=== PATIENT | male | born 1960 | race Caucasian/White ===

== ENCOUNTER 2024-10-06 06:45 | Inpatient (IN) ==
[2024-10-06 08:24] LABS: Hematocrit 19.1 % (38-53); Hemoglobin 6.4 g/dL (13.2-16.3); Mean Corpuscular Hemoglobin 29.7 pg (27-33); Mean Corpuscular Hgb Conc 33.6 g/dL (31-36); Mean Corpuscular Volume 88.4 fL (80-97); Mean Platelet Volume 8.9 fL (7.5-11.2); Platelet Count 170 10^3/uL (150-450); Red Blood Count 2.16 10^6/uL (4.06-5.63); Red Cell Distribution Width 14.4 % (12-17); White Blood Count 14.6 10^3/uL (3.6-10.2)
[2024-10-06 09:02] LABS: ABS Basophils 0.2 10^3/uL (0.0-0.1); ABS Eosinophils 0.1 10^3/uL (0.0-0.5); ABS Monocytes 1.7 10^3/uL (0.0-1.1); ABS Neutrophils 10.5 10^3/uL (1.5-7.6); ABS Nucleated RBC 0.07 10^3/ul; Acanthocytes 1+; Eosinophil % 0.9 %; Howell Jolly Bodies Present; Hypochromasia 1+; Lymphocyte % 13.8 %; Nucleated Red Blood Cells % 0.5 %/100WBC (0.0-0.8)
[2024-10-06 09:21] LABS: Albumin 3.5 g/dL (3.5-5.7); Albumin/Globulin Ratio 1.7 (1-3); C Reactive Protein 1.78 mg/L (<8.01); Calcium 8.8 mg/dL (8.6-10.3); Creatinine, Serum 1.44 mg/dL (0.67-1.17); Globulin 2.1 g/dL (2-4); Potassium 4.6 mmol/L (3.5-5.0); Total Bilirubin 0.3 mg/dL (0.2-1.0); Total Protein 5.6 g/dL (6.4-8.9); eGFR CKD-EPI 54.3 (>60)
[2024-10-06] MEDS: Pantoprazole VIAL 40 MG VIAL IV ONE (09:32)
[2024-10-06] MEDS: Famotidine IV 10 MG/ML 2 ml VIAL (20 mg) IV SLOW PU ONE ×2 (09:32→21:04)
[2024-10-06 09:35] LABS: INR 1.01 (0.85-1.14)
[2024-10-06 09:42] LABS: High Sensitivity Troponin 1 Hr 847 pg/mL (<20)
[2024-10-06] MEDS: Pantoprazole 80 mg in NS BAG 80 MG/100 ML BAG IV SCH ×2 (09:58→21:04)
[2024-10-06 12:06] LABS: Ferritin 88.6 ng/mL (24-336)
[2024-10-06 12:10] LABS: Hematocrit 21.7 % (38-53); Hemoglobin 7.4 g/dL (13.2-16.3)
[2024-10-06 12:40] LABS: High Sensitivity Troponin 3 Hr 1675 pg/mL (<20)
[2024-10-06] MEDS ORDERED: Sulfur Hexaflouride MICROSPHR 25 MG VIAL IV PRN (13:41)
[2024-10-06] MEDS ORDERED: Propofol 10 MG/ML 20 ML BTL ONE ×2 (15:20)
[2024-10-06] MEDS ORDERED: Lidocaine 2% PF 5 ML VIAL ONE (15:20)
[2024-10-06] MEDS ORDERED: fentaNYL 100 mcg/2 ml 50 MCG/ML VIAL ONE (15:22)
[2024-10-06] MEDS ORDERED: fentaNYL 100 mcg/2 ml 50 MCG/ML VIAL IV PRN (15:26)
[2024-10-06] MEDS ORDERED: Ondansetron 4 mg VIAL 2 MG/ML 2 ml VIAL IV PRN (15:26)
[2024-10-06] MEDS ORDERED: Naloxone 0.4 mg VIAL 0.4 mg/ml 1 ml VIAL IV PRN (15:26)
[2024-10-06] MEDS ORDERED: EPINEPHrine SYR 0.1MG/ML 10 ml SYRINGE IV ONE (16:57)
[2024-10-06] MEDS: Ondansetron 4 mg VIAL 2 MG/ML 2 ml VIAL IV ONE (17:41)
[2024-10-06] MEDS: Buffered Lidocaine 1% SYRIN 1 ml INTRADERM ONE (17:41)
[2024-10-06] MEDS: Acetaminophen IV 1 GM/100ML 1,000 MG/100 ML BAG IV ONE (17:41)
[2024-10-06] MEDS: Lactated Ringers 1000 ml BAG 1,000 ML IV SCH (17:46)
[2024-10-06 18:05] LABS: Hematocrit 24.7 % (38-53); Hemoglobin 8.4 g/dL (13.2-16.3)
[2024-10-06] MEDS: Calcium Carb (TUMS) 500 mg CHEW TAB PO PRN (18:05)
[2024-10-06 19:30] LABS: High Sensitivity Troponin 1 Hr 6559 pg/mL (<20)
[2024-10-06] MEDS: HYDROmorphone 0.5 MG/0.5 ML SYRINGE IV ONE (23:01)
[2024-10-06 23:49] LABS: Hematocrit 23.6 % (38-53); Hemoglobin 7.9 g/dL (13.2-16.3)
[2024-10-07 00:08] LABS: High Sensitivity Troponin 3 Hr 11276 pg/mL (<20)
[2024-10-07] MEDS ORDERED: Ondansetron 4 mg VIAL 2 MG/ML 2 ml VIAL IV PRN (01:10)
[2024-10-07 05:45] LABS: Hematocrit 23.8 % (38-53); Hemoglobin 8.2 g/dL (13.2-16.3); Mean Corpuscular Hemoglobin 29.9 pg (27-33); Mean Corpuscular Hgb Conc 34.3 g/dL (31-36); Mean Corpuscular Volume 87.2 fL (80-97); Mean Platelet Volume 9.1 fL (7.5-11.2); Platelet Count 166 10^3/uL (150-450); Red Blood Count 2.73 10^6/uL (4.06-5.63); Red Cell Distribution Width 15.5 % (12-17); White Blood Count 18.7 10^3/uL (3.6-10.2)
[2024-10-07 06:05] LABS: Anion Gap 6 mmol/L (2-16); Blood Urea Nitrogen 39 mg/dL (6-24); CO2 Carbon Dioxide 24 mmol/L (22-32); Calcium 8.3 mg/dL (8.6-10.3); Chloride 101 mmol/L (101-111); Creatinine, Serum 1.34 mg/dL (0.67-1.17); Glucose 116 mg/dL (70-100); Magnesium 1.8 mg/dL (1.9-2.7); Potassium 4.5 mmol/L (3.5-5.0); Sodium 131 mmol/L (135-145); eGFR CKD-EPI 59.2 (>60)
[2024-10-07 06:07] LABS: High Sensitivity Troponin 1 Hr 11664 pg/mL (<20)
[2024-10-07 07:25] LABS: ABS Basophils 0.1 10^3/uL (0.0-0.1); ABS Lymphocytes 1.8 10^3/uL (1.0-4.8); ABS Monocytes 2.4 10^3/uL (0.0-1.1); ABS Neutrophils 14.3 10^3/uL (1.5-7.6); ABS Nucleated RBC 0.47 10^3/ul; Anisocytosis 1+; Eosinophil % 0.2 %; Lymphocyte % 9.8 %; Nucleated Red Blood Cells % 2.5 %/100WBC (0.0-0.8)
[2024-10-07] MEDS: Magnesium Sulfate IV 1GM/100ML 1 GM/100 ML BAG IV ONE (08:25)
[2024-10-07] MEDS: Lidocaine PATCH 5% PATCH TRANSDERM SCH (12:46)
[2024-10-07 21:52] LABS: Calcium 8.8 mg/dL (8.6-10.3); Creatinine, Serum 1.52 mg/dL (0.67-1.17); Magnesium 1.9 mg/dL (1.9-2.7); Potassium 4.4 mmol/L (3.5-5.0); eGFR CKD-EPI 50.9 (>60)
[2024-10-07 21:54] LABS: ABS Eosinophils 0.2 10^3/uL (0.0-0.5); ABS Lymphocytes 2.6 10^3/uL (1.0-4.8); ABS Monocytes 2.7 10^3/uL (0.0-1.1); ABS Neutrophils 18.5 10^3/uL (1.5-7.6); ABS Nucleated RBC 0.63 10^3/ul; Eosinophil % 0.9 %; Hemoglobin 8.4 g/dL (13.2-16.3); Lymphocyte % 10.8 %; Mean Corpuscular Hemoglobin 29.6 pg (27-33); Mean Corpuscular Hgb Conc 33.5 g/dL (31-36); Mean Corpuscular Volume 88.1 fL (80-97); Mean Platelet Volume 8.8 fL (7.5-11.2); Nucleated Red Blood Cells % 2.6 %/100WBC (0.0-0.8); Platelet Count 206 10^3/uL (150-450); Polychromasia 2+; Red Blood Count 2.84 10^6/uL (4.06-5.63); Red Cell Distribution Width 15.3 % (12-17)
[2024-10-08 06:24] LABS: Calcium 8.4 mg/dL (8.6-10.3); Creatinine, Serum 1.45 mg/dL (0.67-1.17); Potassium 4.4 mmol/L (3.5-5.0); eGFR CKD-EPI 53.8 (>60)
[2024-10-08 06:59] LABS: ABS Basophils 0.1 10^3/uL (0.0-0.1); ABS Lymphocytes 1.7 10^3/uL (1.0-4.8); ABS Monocytes 2.4 10^3/uL (0.0-1.1); ABS Neutrophils 18.1 10^3/uL (1.5-7.6); ABS Nucleated RBC 0.59 10^3/ul; Eosinophil % 0.1 %; Hematocrit 24.4 % (38-53); Hemoglobin 8.1 g/dL (13.2-16.3); Lymphocyte % 7.5 %; Mean Corpuscular Hemoglobin 29.4 pg (27-33); Mean Corpuscular Hgb Conc 33.1 g/dL (31-36); Mean Corpuscular Volume 88.8 fL (80-97); Mean Platelet Volume 8.7 fL (7.5-11.2); Nucleated Red Blood Cells % 2.7 %/100WBC (0.0-0.8); Platelet Count 199 10^3/uL (150-450); Red Blood Count 2.75 10^6/uL (4.06-5.63); Red Cell Distribution Width 15.5 % (12-17); White Blood Count 22.3 10^3/uL (3.6-10.2)
[2024-10-08] MEDS ORDERED: fentaNYL 100 mcg/2 ml 50 MCG/ML VIAL ONE (09:59)
[2024-10-08] MEDS ORDERED: Midazolam 5 mg/5 ml VIAL 1 mg/ml 5 ml VIAL (5 mg) ONE (09:59)
[2024-10-08] MEDS ORDERED: Heparin 1,000 UNIT/ML 10 ml (10,000 UNITS) CATHLAB/DIALYSIS ONE (09:59)
[2024-10-08] MEDS ORDERED: Iohexol 350 (CONTRAST) 200 ML MDV IV ONE (10:00)
[2024-10-08] MEDS ORDERED: VERAPAMIL 2.5 MG/ML 2 ML VIAL ** 5 mg/2 ml ONE (10:00)
[2024-10-08] MEDS ORDERED: Lidocaine 1% VIAL 10 MG/ML 30 ML VIAL ONE (10:00)
[2024-10-08] MEDS ORDERED: nitroGLYCERIN DRIP 50,000 MCG/250 ML BTL ONE (10:00)
[2024-10-08] MEDS ORDERED: Heparin 2 UNITS/ML 1000 mls 2,000 ML IV ONE (10:00)
[2024-10-08] MEDS: Pantoprazole 80 mg in NS BAG 80 MG/100 ML BAG IV SCH (15:00)
[2024-10-08 15:11] LABS: ABS Basophils 0.1 10^3/uL (0.0-0.1); ABS Lymphocytes 2.3 10^3/uL (1.0-4.8); ABS Monocytes 2.2 10^3/uL (0.0-1.1); ABS Neutrophils 16.1 10^3/uL (1.5-7.6); ABS Nucleated RBC 0.45 10^3/ul; Eosinophil % 0.2 %; Hematocrit 22.7 % (38-53); Hemoglobin 7.6 g/dL (13.2-16.3); Lymphocyte % 11.1 %; Mean Corpuscular Hemoglobin 29.6 pg (27-33); Mean Corpuscular Hgb Conc 33.6 g/dL (31-36); Mean Corpuscular Volume 87.9 fL (80-97); Mean Platelet Volume 8.9 fL (7.5-11.2); Nucleated Red Blood Cells % 2.2 %/100WBC (0.0-0.8); Platelet Count 178 10^3/uL (150-450); Red Blood Count 2.58 10^6/uL (4.06-5.63); Red Cell Distribution Width 15.8 % (12-17); White Blood Count 20.7 10^3/uL (3.6-10.2)
[2024-10-08] MEDS: Heparin DRIP 25,000 UNITS BAG 25,000 UNITS/250 ML BAG IV SCH (15:38)
[2024-10-08] MEDS: Heparin 5000 UNITS/ML 1 mL VIAL IV SCH (15:43)
[2024-10-08 18:41] VITALS: BP 99/49
[2024-10-08] MEDS: HYDROmorphone 0.5 MG/0.5 ML SYRINGE IV SLOW PU PRN (19:23)
[2024-10-08] MEDS ORDERED: Pantoprazole VIAL 40 MG VIAL IV SCH (21:00)
== END 2024-10-08 20:05 | disposition short-term general hospital (02) | DRG 241 ==
LOC: ED 06:45 → EDHOLD 06:45 → MED 11:39 → ICU 10-08 12:19
PROVIDERS: ADMIT Hospitalist; ATTEND Internal Medicine
PROC: O.GIEGD (2024-10-06 16:05)